=== PATIENT | male | born 1960 | race Two or more races ===

== ENCOUNTER 2019-08-08 18:08 | Emergency (ER) | payer MEDICAID ==
[~2019-08-08] VITALS: Ht 167.6 cm; Wt 56.3 kg
[~2019-08-08 18:08] MED LIST: INSLAN SQ; LEVO-72 PO; TAMS-13 PO
[2019-08-08 22:39] LABS: HEMATOCRIT 31.1 % (41-53); HEMOGLOBIN 10.5 g/dL (13.5-17.5); MEAN CORPUSCULAR HEMOGLOBIN 28.9 pg (26.0-34.0); MEAN CORPUSCULAR HGB CONC 33.7 G/dL (31.0-37.0); MEAN CORPUSCULAR VOLUME 86 fL (80-100); PLATELET COUNT (AUTO) 481 K/uL (150-450); RED BLOOD CELL COUNT(AUTO) 3.62 MIL/uL (4.50-5.90); RED CELL DISTRIBUTION WIDTH 12.2 % (11.5-14.5)
[2019-08-08 22:51] LABS: CALCIUM, TOTAL 8.6 mg/dL (8.8-10.5); CREATININE 1.8 mg/dL (0.60-1.30); POTASSIUM 4.7 mmol/L (3.5-5.1)
[2019-08-08 22:57] LABS: ALBUMIN 2.3 g/dL (3.4-5.0); BILIRUBIN,TOTAL 0.4 mg/dL (0.1-1.0); TOTAL PROTEIN, SERUM 6.3 g/dL (6.4-8.2)
[2019-08-08 23:07] LABS: BAND NEUTROPHILS % (MANUAL) 8 % (0-5); LYMPHOCYTES % (MANUAL) 5 % (22-44); MONOCYTES % (MANUAL) 7 % (2-9); SEGMENTED NEUTROPHILS % 80 % (40-70)
[2019-08-08] MEDS ORDERED: PIPERACILLIN/TAZO 3.375 GM/D5W 50 ML IV ONE (23:30)
[2019-08-08] MEDS ORDERED: VANCOMYCIN HCL 1 GM/D5% WATER 200 ML IV ONE (23:30)
[2019-08-08] MEDS ORDERED: SODIUM CHLORIDE 0.9% 1,700 ML IV ONE (23:45)
[2019-08-08] MEDS ORDERED: LEVOFLOXACIN 750 MG TABLET PO ONE (23:45)
[2019-08-08] MEDS ORDERED: LEVOFLOXACIN 250 MG TABLET PO ONE (23:45)
[2019-08-09 00:30] VITALS: BP 127/76
== END 2019-08-09 00:38 | disposition home or self-care (01) ==
LOC: EMS 18:11
DX: T83.098A Other mechanical complication of other urinary catheter, initial encounter (principal); N17.9 Acute kidney failure, unspecified; D72.825 Bandemia; Y84.6 Urinary catheterization as the cause of abnormal reaction of the patient, or of later complication, without mention of misadventure at the time of the procedure; Y73.8 Miscellaneous gastroenterology and urology devices associated with adverse incidents, not elsewhere classified
CPT/HCPCS: 99291

== ENCOUNTER 2019-08-10 21:05 | Emergency (ER) | payer MEDICAID ==
[~2019-08-10] VITALS: Ht 157.5 cm; Wt 66.0 kg
[2019-08-10 21:40] LABS: GLUCOSE,POINT OF CARE 379 MG/DL (70-110)
[2019-08-10 22:42] LABS: APPEARANCE,URINE CLOUDY (CLEAR); BILIRUBIN,URINE NEGATIVE (NEGATIVE); GLUCOSE, URINE (UA) >=1000 mg/dL (NEGATIVE); KETONES,URINE NEGATIVE (NEGATIVE); LEUKOCYTE ESTERASE ,URINE SMALL (NEGATIVE); NITRATE,URINE NEGATIVE (NEGATIVE); OCCULT BLOOD,URINE LARGE (NEGATIVE); PH,URINE 5.5 (5.0-8.0); PROTEIN,URINE TRACE (NEGATIVE); UROBILINOGEN,URINE 0.2 mg/dL (<=1.0)
[2019-08-10 22:58] LABS: WBC,URINE 26-50 /HPF (0-5)
[2019-08-10 22:59] LABS: BACTERIA,URINE Moderate /HPF (None Seen); YEAST,URINE Many /HPF (None Seen)
[2019-08-10 23:00] LABS: SQUAMOUS EPITHELIAL CELL,UR None Seen /LPF (None Seen)
[2019-08-11 00:15] VITALS: BP 129/72
== END 2019-08-11 00:54 | disposition home or self-care (01) ==
LOC: EMS 21:05
DX: R33.9 Retention of urine, unspecified (principal); R10.30 Lower abdominal pain, unspecified; F17.210 Nicotine dependence, cigarettes, uncomplicated; E11.9 Type 2 diabetes mellitus without complications; Z79.4 Long term (current) use of insulin
CPT/HCPCS: 51702; 87086